=== PATIENT | male | born 1995 | race Caucasian/White ===

== ENCOUNTER 2021-10-23 12:52 | Emergency (ER) | payer OTHER ==
[~2021-10-23] VITALS: Ht 172.7 cm; Wt 66.0 kg
[2021-10-23 12:59] VITALS: BP 149/110
[2021-10-23] MEDS ORDERED: MUPI22OI2 TP (13:08)
== END 2021-10-23 13:13 | disposition home or self-care (01) ==
LOC: ER 12:52
DX: N48.1 Balanitis (principal)
CPT/HCPCS: 99281